=== PATIENT | female | born 1945 | race Caucasian/White ===

== ENCOUNTER 2016-10-06 19:51 | Inpatient (IN) | payer BC ==
[~2016-10-06] VITALS: Ht 160 cm; Wt 100.2 kg
[2016-10-06] MEDS ORDERED: DUONEB INH ONE ×2 (21:17)
[2016-10-06] MEDS ORDERED: NEB-ALBUTEROL 2.5 MG/3 ML INH ONE (21:17)
[2016-10-06] MEDS ORDERED: LABETALOL 100 MG/20 ML VIAL ONE (21:24)
[2016-10-06] MEDS ORDERED: Furosemide 40 MG/4 ML VIAL ONE (21:58)
[2016-10-07] MEDS ORDERED: DEXTROSE 50% SYRINGE 50 ML IV PRN (01:00)
[2016-10-07] MEDS ORDERED: ONDANSETRON 4 MG VIAL IV PRN (01:00)
[2016-10-07] MEDS ORDERED: SALINE FLUSH 10 ML FLUSH PRN (01:00)
[2016-10-07] MEDS ORDERED: METHYLPRED SOD SUCC 40 MG VIAL IV SCH (01:00)
[2016-10-07] MEDS: DUONEB INH SCH ×5 (01:00→22:42)
[2016-10-07] MEDS ORDERED: GLUCAGON 1 MG VIAL IM PRN (01:00)
[2016-10-07] MEDS: CEFTRIAXONE 1 GM in SODIUM CHLORIDE 0.9% 50 ML IV SCH ×2 (01:08→04:04)
[2016-10-07 03:06] VITALS: BP_SYST 155; RESP 20; TEMP 97.3
[2016-10-07 03:09] VITALS: BMI 38.1
[2016-10-07] MEDS ORDERED: MISSING DOSE XX ONE (03:40)
[2016-10-07] MEDS: METHYLPRED SOD SUCC 125 MG/2 ML VIAL IV SCH ×2 (04:04→09:44)
[2016-10-07] MEDS: SALINE FLUSH 10 ML FLUSH SCH ×3 (04:05→20:12)
[2016-10-07] MEDS: SODIUM CHLORIDE 0.9% FLUSH BAG 500 ML IV SCH (04:05)
[2016-10-07 05:15] VITALS: RESP 16
[2016-10-07 07:18] VITALS: BP_SYST 99; RESP 18; TEMP 97.6
[2016-10-07] MEDS ORDERED: AZITHROMYCIN 500 MG in SODIUM CHLORIDE 0.9% 250 ML IV SCH (09:00)
[2016-10-07] MEDS ORDERED: BUMETANIDE 1 MG/4 ML VIAL IV SCH (09:00)
[2016-10-07] MEDS: GABAPENTIN 300 MG CAP PO SCH ×3 (09:44→20:12)
[2016-10-07] MEDS: oxyCODONE/APAP 10/325 TABLET PO PRN ×2 (09:45→15:12)
[2016-10-07 10:46] VITALS: BP_SYST 145; RESP 18; TEMP 97.9
[2016-10-07] MEDS ORDERED: AZITHROMYCIN 250 MG TAB PO ONE (14:40)
[2016-10-07] MEDS: NEB-NACL 3% 4 ML NEBU INH SCH ×3 (14:45→22:43)
[2016-10-07] MEDS: NICOTINE 21 MG/24 HR TRANSDERM SCH (15:11)
[2016-10-07] MEDS ORDERED: NEB-BROVANA 15 MCG/2 ML INH ONE (16:47)
[2016-10-07] MEDS ORDERED: NEB-BUDESONIDE 0.5 MG INH ONE (16:48)
[2016-10-07] MEDS: NEB-BUDESONIDE 0.5 MG INH SCH (17:06)
[2016-10-07] MEDS: NEB-BROVANA 15 MCG/2 ML INH SCH (17:06)
[2016-10-07] MEDS: CLOPIDOGREL 75 MG TAB PO SCH (18:56)
[2016-10-07] MEDS: DILTIAZEM CD 240 MG CAP PO SCH (18:56)
[2016-10-07] MEDS: Hydrocodone/APAP 10/325 MG TAB PO SCH (18:57)
[2016-10-07 19:26] VITALS: BP_SYST 115; RESP 18; TEMP 98.1
[2016-10-07] MEDS: METOPROLOL TART 25 MG TAB PO SCH (20:12)
[2016-10-07] MEDS: BUMETANIDE 0.5 MG TAB PO SCH (20:12)
[2016-10-07] MEDS: Atorvastatin 10 MG TAB PO SCH (20:12)
[2016-10-07 23:02] VITALS: BP_SYST 126; RESP 20; TEMP 97.9
[2016-10-08] MEDS: Hydrocodone/APAP 10/325 MG TAB PO SCH ×3 (02:35→17:40)
[2016-10-08 02:54] VITALS: BP_SYST 118; RESP 18; TEMP 97.4
[2016-10-08] MEDS: SODIUM CHLORIDE 0.9% FLUSH BAG 500 ML IV SCH (06:00)
[2016-10-08] MEDS: DUONEB INH SCH ×4 (06:44→22:21)
[2016-10-08] MEDS: NEB-NACL 3% 4 ML NEBU INH SCH ×4 (06:45→22:21)
[2016-10-08] MEDS: NEB-BUDESONIDE 0.5 MG INH SCH ×2 (06:45→17:43)
[2016-10-08] MEDS: NEB-BROVANA 15 MCG/2 ML INH SCH ×2 (06:45→17:42)
[2016-10-08 07:23] VITALS: BP_SYST 97; RESP 18; TEMP 97.7
[2016-10-08] MEDS ORDERED: LEVEMIR INSULIN SUBQ SCH (09:15)
[2016-10-08] MEDS: SALINE FLUSH 10 ML FLUSH SCH ×2 (09:51→20:02)
[2016-10-08] MEDS: NICOTINE 21 MG/24 HR TRANSDERM SCH (09:52)
[2016-10-08] MEDS: AZITHROMYCIN 250 MG TAB PO SCH (09:52)
[2016-10-08] MEDS: CEFTRIAXONE 1 GM in SODIUM CHLORIDE 0.9% 50 ML IV SCH (09:52)
[2016-10-08] MEDS: GABAPENTIN 300 MG CAP PO SCH ×3 (09:52→20:03)
[2016-10-08] MEDS: CLOPIDOGREL 75 MG TAB PO SCH (09:52)
[2016-10-08] MEDS: METOPROLOL TART 25 MG TAB PO SCH ×2 (09:52→20:03)
[2016-10-08] MEDS: BUMETANIDE 0.5 MG TAB PO SCH ×2 (09:54→20:02)
[2016-10-08] MEDS: PREDNISONE 20 MG TAB PO SCH (09:54)
[2016-10-08] MEDS: DILTIAZEM CD 240 MG CAP PO SCH (12:28)
[2016-10-08 13:11] VITALS: BP_SYST 108; RESP 18; TEMP 98.3
[2016-10-08] MEDS ORDERED: PHARMACY TO DOSE MERREM XX SCH (15:45)
[2016-10-08 16:16] VITALS: BP_SYST 105; RESP 18; TEMP 97.9
[2016-10-08] MEDS: Atorvastatin 10 MG TAB PO SCH (20:02)
[2016-10-08 20:16] VITALS: BP_SYST 130; RESP 20; TEMP 98.2
[2016-10-08 22:54] VITALS: BP_SYST 128; RESP 20; TEMP 98.1
[2016-10-09] VITALS (7 sets, daily range): BP systolic 110–155; RESP 16–20; TEMP 96.4–98.3
[2016-10-09] MEDS: Hydrocodone/APAP 10/325 MG TAB PO SCH ×4 (02:05→18:00)
[2016-10-09] MEDS: SODIUM CHLORIDE 0.9% FLUSH BAG 500 ML IV SCH (06:10)
[2016-10-09] MEDS: DUONEB INH SCH ×4 (06:11→22:16)
[2016-10-09] MEDS: NEB-BROVANA 15 MCG/2 ML INH SCH ×3 (06:11→22:16)
[2016-10-09] MEDS: NEB-BUDESONIDE 0.5 MG INH SCH ×3 (06:11→22:16)
[2016-10-09] MEDS: NEB-NACL 3% 4 ML NEBU INH SCH ×4 (06:11→22:16)
[2016-10-09] MEDS: LEVEMIR INSULIN SUBQ SCH (09:00)
[2016-10-09] MEDS: NICOTINE 21 MG/24 HR TRANSDERM SCH (09:42)
[2016-10-09] MEDS: PREDNISONE 20 MG TAB PO SCH (09:42)
[2016-10-09] MEDS: DILTIAZEM CD 240 MG CAP PO SCH (09:43)
[2016-10-09] MEDS: AZITHROMYCIN 250 MG TAB PO SCH (09:43)
[2016-10-09] MEDS: CLOPIDOGREL 75 MG TAB PO SCH (09:43)
[2016-10-09] MEDS: METOPROLOL TART 25 MG TAB PO SCH ×2 (09:44→20:53)
[2016-10-09] MEDS: SALINE FLUSH 10 ML FLUSH SCH ×2 (09:45→20:44)
[2016-10-09] MEDS ORDERED: MISSING DOSE XX ONE ×2 (09:55)
[2016-10-09] MEDS: BUMETANIDE 0.5 MG TAB PO SCH ×2 (10:49→20:53)
[2016-10-09] MEDS: GABAPENTIN 300 MG CAP PO SCH ×3 (10:50→20:53)
[2016-10-09] MEDS ORDERED: ACETAMINOPHEN 325 MG TAB PO SCH (15:05)
[2016-10-09] MEDS ORDERED: ACETAMINOPHEN 325 MG TAB ONE (15:12)
[2016-10-09] MEDS: ACETAMINOPHEN 325 MG TAB PO PRN (15:19)
[2016-10-09] MEDS: Atorvastatin 10 MG TAB PO SCH (20:53)
[2016-10-10] VITALS (7 sets, daily range): BP systolic 124–149; RESP 15–20; TEMP 97.2–98.3
[2016-10-10] MEDS: SODIUM CHLORIDE 0.9% FLUSH BAG 500 ML IV SCH ×2 (00:12→23:52)
[2016-10-10] MEDS: Hydrocodone/APAP 10/325 MG TAB PO SCH ×3 (02:55→18:02)
[2016-10-10] MEDS: DUONEB INH SCH ×2 (05:35→15:11)
[2016-10-10] MEDS: NEB-BUDESONIDE 0.5 MG INH SCH ×2 (05:35→20:07)
[2016-10-10] MEDS: NEB-NACL 3% 4 ML NEBU INH SCH ×4 (05:35→23:48)
[2016-10-10] MEDS: NEB-BROVANA 15 MCG/2 ML INH SCH ×2 (05:35→20:07)
[2016-10-10] MEDS: SALINE FLUSH 10 ML FLUSH SCH ×2 (08:54→20:25)
[2016-10-10] MEDS: AZITHROMYCIN 250 MG TAB PO SCH (08:55)
[2016-10-10] MEDS: CLOPIDOGREL 75 MG TAB PO SCH (08:55)
[2016-10-10] MEDS: BUMETANIDE 0.5 MG TAB PO SCH ×2 (08:55→21:09)
[2016-10-10] MEDS: GABAPENTIN 300 MG CAP PO SCH ×3 (08:55→21:08)
[2016-10-10] MEDS: DILTIAZEM CD 240 MG CAP PO SCH (08:55)
[2016-10-10] MEDS: PREDNISONE 20 MG TAB PO SCH (08:56)
[2016-10-10] MEDS: METOPROLOL TART 25 MG TAB PO SCH ×2 (08:56→21:08)
[2016-10-10] MEDS: NICOTINE 21 MG/24 HR TRANSDERM SCH (09:07)
[2016-10-10] MEDS: LEVEMIR INSULIN SUBQ SCH (09:07)
[2016-10-10] MEDS ORDERED: MAG HYDROX 30 ML UDC PO PRN (10:45)
[2016-10-10] MEDS: NEB-Levalbuterol 0.31 MG/3 ML NEBU INH SCH ×3 (15:53→23:48)
[2016-10-10] MEDS: NEB-ATROVENT INH SCH ×3 (15:53→23:48)
[2016-10-10] MEDS: ALPRAZOLAM 0.25 MG TAB PO PRN ×2 (16:17→22:01)
[2016-10-10] MEDS: Atorvastatin 10 MG TAB PO SCH (21:08)
[2016-10-10] MEDS ORDERED: MISSING DOSE XX ONE (21:15)
[2016-10-10] MEDS: BISACODYL EC 5 MG TAB PO PRN (22:01)
[2016-10-11] VITALS (7 sets, daily range): BP systolic 124–148; RESP 18–20; TEMP 97–98
[2016-10-11] MEDS: Hydrocodone/APAP 10/325 MG TAB PO SCH ×3 (02:31→18:45)
[2016-10-11] MEDS: NEB-NACL 3% 4 ML NEBU INH SCH ×4 (07:58→23:33)
[2016-10-11] MEDS: NEB-Levalbuterol 0.31 MG/3 ML NEBU INH SCH ×4 (07:58→23:33)
[2016-10-11] MEDS: NEB-BUDESONIDE 0.5 MG INH SCH ×2 (07:58→19:35)
[2016-10-11] MEDS: NEB-BROVANA 15 MCG/2 ML INH SCH ×2 (07:58→19:35)
[2016-10-11] MEDS: NEB-ATROVENT INH SCH ×4 (07:58→23:33)
[2016-10-11] MEDS: SALINE FLUSH 10 ML FLUSH SCH ×2 (08:37→22:31)
[2016-10-11] MEDS: NICOTINE 21 MG/24 HR TRANSDERM SCH (08:38)
[2016-10-11] MEDS: DILTIAZEM CD 240 MG CAP PO SCH (08:39)
[2016-10-11] MEDS: GABAPENTIN 300 MG CAP PO SCH ×3 (08:39→22:29)
[2016-10-11] MEDS: LEVEMIR INSULIN SUBQ SCH (08:39)
[2016-10-11] MEDS: METOPROLOL TART 25 MG TAB PO SCH ×2 (08:39→22:29)
[2016-10-11] MEDS: AZITHROMYCIN 250 MG TAB PO SCH (08:40)
[2016-10-11] MEDS: CLOPIDOGREL 75 MG TAB PO SCH (08:40)
[2016-10-11] MEDS: PREDNISONE 20 MG TAB PO SCH (08:40)
[2016-10-11] MEDS ORDERED: MISSING DOSE XX ONE ×2 (08:45→21:20)
[2016-10-11] MEDS: ALPRAZOLAM 0.25 MG TAB PO PRN ×2 (08:52→22:29)
[2016-10-11] MEDS: BUMETANIDE 0.5 MG TAB PO SCH ×2 (10:09→22:29)
[2016-10-11] MEDS: Atorvastatin 10 MG TAB PO SCH (22:29)
[2016-10-11] MEDS: BISACODYL EC 5 MG TAB PO PRN (22:30)
[2016-10-12] MEDS: SODIUM CHLORIDE 0.9% FLUSH BAG 500 ML IV SCH (00:51)
[2016-10-12] MEDS: Hydrocodone/APAP 10/325 MG TAB PO SCH ×3 (02:22→18:10)
[2016-10-12 03:32] VITALS: BP_SYST 132; RESP 18; TEMP 97
[2016-10-12] MEDS: ALPRAZOLAM 0.25 MG TAB PO PRN ×2 (04:07→18:10)
[2016-10-12] MEDS: NEB-Levalbuterol 0.31 MG/3 ML NEBU INH SCH ×5 (07:19→22:44)
[2016-10-12] MEDS: NEB-BUDESONIDE 0.5 MG INH SCH ×2 (07:19→19:00)
[2016-10-12] MEDS: NEB-NACL 3% 4 ML NEBU INH SCH ×4 (07:19→22:51)
[2016-10-12] MEDS: NEB-ATROVENT INH SCH ×5 (07:19→22:44)
[2016-10-12] MEDS: NEB-BROVANA 15 MCG/2 ML INH SCH ×2 (07:19→19:00)
[2016-10-12 07:34] VITALS: BP_SYST 136; RESP 18; TEMP 97.2
[2016-10-12] MEDS ORDERED: MISSING DOSE XX ONE ×3 (07:50→20:50)
[2016-10-12] MEDS: NICOTINE 21 MG/24 HR TRANSDERM SCH (08:46)
[2016-10-12] MEDS: METOPROLOL TART 25 MG TAB PO SCH ×2 (08:47→20:30)
[2016-10-12] MEDS: PREDNISONE 20 MG TAB PO SCH (08:47)
[2016-10-12] MEDS: AZITHROMYCIN 250 MG TAB PO SCH (08:47)
[2016-10-12] MEDS: CLOPIDOGREL 75 MG TAB PO SCH (08:47)
[2016-10-12] MEDS: DILTIAZEM CD 240 MG CAP PO SCH (08:47)
[2016-10-12] MEDS: BUMETANIDE 0.5 MG TAB PO SCH ×2 (08:47→20:29)
[2016-10-12] MEDS: LEVEMIR INSULIN SUBQ SCH (08:49)
[2016-10-12] MEDS: GABAPENTIN 300 MG CAP PO SCH ×3 (10:21→20:30)
[2016-10-12] MEDS: SALINE FLUSH 10 ML FLUSH SCH ×2 (10:21→20:29)
[2016-10-12] MEDS ORDERED: MAG CIT SOLN 300 ML PO ONE (11:20)
[2016-10-12] MEDS: GUAIFENESIN ER 600 MG TABCR PO SCH ×2 (12:41→20:29)
[2016-10-12 15:45] VITALS: BP_SYST 125; RESP 18; TEMP 97.9
[2016-10-12 19:46] VITALS: BP_SYST 120; RESP 18; TEMP 97.3
[2016-10-12] MEDS: Atorvastatin 10 MG TAB PO SCH (20:29)
[2016-10-12] MEDS: BISACODYL EC 5 MG TAB PO PRN (21:36)
[2016-10-12 22:31] VITALS: BP_SYST 130; RESP 18; TEMP 97.6
[2016-10-13] VITALS (7 sets, daily range): BP systolic 120–138; RESP 16–53; TEMP 97.6–98.6; Ht 160 cm; Wt 100.2 kg
[2016-10-13] MEDS: Hydrocodone/APAP 10/325 MG TAB PO SCH ×3 (02:30→18:35)
[2016-10-13] MEDS: ALPRAZOLAM 0.25 MG TAB PO PRN ×3 (02:37→19:51)
[2016-10-13] MEDS: SODIUM CHLORIDE 0.9% FLUSH BAG 500 ML IV SCH (05:48)
[2016-10-13] MEDS: NEB-ATROVENT INH SCH ×5 (06:13→22:27)
[2016-10-13] MEDS: NEB-NACL 3% 4 ML NEBU INH SCH ×4 (06:13→22:26)
[2016-10-13] MEDS: NEB-BROVANA 15 MCG/2 ML INH SCH ×2 (06:13→17:16)
[2016-10-13] MEDS: NEB-Levalbuterol 0.31 MG/3 ML NEBU INH SCH ×5 (06:13→22:26)
[2016-10-13] MEDS: NEB-BUDESONIDE 0.5 MG INH SCH ×2 (06:13→17:15)
[2016-10-13] MEDS: LEVEMIR INSULIN SUBQ SCH (09:07)
[2016-10-13] MEDS: SALINE FLUSH 10 ML FLUSH SCH ×2 (09:07→19:51)
[2016-10-13] MEDS: BUMETANIDE 0.5 MG TAB PO SCH ×2 (09:08→19:51)
[2016-10-13] MEDS: NICOTINE 21 MG/24 HR TRANSDERM SCH (09:08)
[2016-10-13] MEDS: GUAIFENESIN ER 600 MG TABCR PO SCH ×2 (09:08→19:51)
[2016-10-13] MEDS: CLOPIDOGREL 75 MG TAB PO SCH (09:08)
[2016-10-13] MEDS: METOPROLOL TART 25 MG TAB PO SCH ×2 (09:08→19:51)
[2016-10-13] MEDS: GABAPENTIN 300 MG CAP PO SCH ×3 (09:08→19:51)
[2016-10-13] MEDS: DILTIAZEM CD 240 MG CAP PO SCH (09:09)
[2016-10-13] MEDS ORDERED: OPTIRAY 350 100 ML VIAL HMH IV ONE (14:30)
[2016-10-13] MEDS ORDERED: MAG CIT SOLN 300 ML PO ONE (17:30)
[2016-10-13] MEDS: Atorvastatin 10 MG TAB PO SCH (19:51)
[2016-10-14] MEDS: ALPRAZOLAM 0.25 MG TAB PO PRN ×2 (02:32→20:41)
[2016-10-14] MEDS: Hydrocodone/APAP 10/325 MG TAB PO SCH ×3 (02:32→18:04)
[2016-10-14 03:15] VITALS: BP_SYST 112; RESP 20; TEMP 98
[2016-10-14] MEDS: SODIUM CHLORIDE 0.9% FLUSH BAG 500 ML IV SCH (05:33)
[2016-10-14] MEDS: NEB-BROVANA 15 MCG/2 ML INH SCH ×2 (06:26→18:26)
[2016-10-14] MEDS: NEB-Levalbuterol 0.31 MG/3 ML NEBU INH SCH ×5 (06:26→22:33)
[2016-10-14] MEDS: NEB-ATROVENT INH SCH ×5 (06:26→22:33)
[2016-10-14] MEDS: NEB-BUDESONIDE 0.5 MG INH SCH ×2 (06:26→18:26)
[2016-10-14] MEDS: NEB-NACL 3% 4 ML NEBU INH SCH ×4 (06:27→22:31)
[2016-10-14] MEDS: LEVEMIR INSULIN SUBQ SCH (09:00)
[2016-10-14 09:08] VITALS: BP_SYST 138; RESP 18; TEMP 97.3
[2016-10-14] MEDS: SALINE FLUSH 10 ML FLUSH SCH ×2 (09:29→20:47)
[2016-10-14] MEDS: NICOTINE 21 MG/24 HR TRANSDERM SCH (09:29)
[2016-10-14] MEDS: DILTIAZEM CD 240 MG CAP PO SCH (09:30)
[2016-10-14] MEDS: GABAPENTIN 300 MG CAP PO SCH ×3 (09:30→20:37)
[2016-10-14] MEDS: METOPROLOL TART 25 MG TAB PO SCH ×2 (09:30→20:36)
[2016-10-14] MEDS: CLOPIDOGREL 75 MG TAB PO SCH (09:30)
[2016-10-14] MEDS: GUAIFENESIN ER 600 MG TABCR PO SCH ×2 (09:30→20:37)
[2016-10-14] MEDS: BUMETANIDE 0.5 MG TAB PO SCH ×2 (09:30→20:37)
[2016-10-14 12:59] VITALS: BP_SYST 128; RESP 18; TEMP 98
[2016-10-14 16:17] VITALS: BP_SYST 136; RESP 18; TEMP 98.5
[2016-10-14 19:50] VITALS: BP_SYST 118; RESP 18; TEMP 98.8
[2016-10-14] MEDS: Atorvastatin 10 MG TAB PO SCH (20:37)
[2016-10-14 22:18] VITALS: BP_SYST 114; RESP 20; TEMP 98.6
[2016-10-15] VITALS (7 sets, daily range): BP systolic 110–130; RESP 16–18; TEMP 96.6–98.7
[2016-10-15] MEDS: Hydrocodone/APAP 10/325 MG TAB PO SCH ×3 (02:32→17:07)
[2016-10-15] MEDS: SODIUM CHLORIDE 0.9% FLUSH BAG 500 ML IV SCH (05:38)
[2016-10-15] MEDS ORDERED: LIDOCAINE 1% BUFFERED 1 ML SYR INTRADERM PRN (07:10)
[2016-10-15] MEDS ORDERED: LACT RINGERS 1,000 ML IV SCH (07:10)
[2016-10-15] MEDS: NEB-ATROVENT INH SCH ×5 (07:31→23:03)
[2016-10-15] MEDS: NEB-BROVANA 15 MCG/2 ML INH SCH ×2 (07:32→19:17)
[2016-10-15] MEDS: NEB-NACL 3% 4 ML NEBU INH SCH ×4 (07:32→23:06)
[2016-10-15] MEDS: NEB-BUDESONIDE 0.5 MG INH SCH ×2 (07:32→19:17)
[2016-10-15] MEDS: NEB-Levalbuterol 0.31 MG/3 ML NEBU INH SCH ×5 (07:32→23:03)
[2016-10-15] MEDS: CLOPIDOGREL 75 MG TAB PO SCH (07:39)
[2016-10-15] MEDS: GABAPENTIN 300 MG CAP PO SCH ×3 (09:42→21:50)
[2016-10-15] MEDS: METOPROLOL TART 25 MG TAB PO SCH ×2 (09:42→21:50)
[2016-10-15] MEDS: BUMETANIDE 0.5 MG TAB PO SCH ×2 (09:42→21:50)
[2016-10-15] MEDS: DILTIAZEM CD 240 MG CAP PO SCH (09:42)
[2016-10-15] MEDS: GUAIFENESIN ER 600 MG TABCR PO SCH ×2 (09:42→21:49)
[2016-10-15] MEDS: LEVEMIR INSULIN SUBQ SCH (09:43)
[2016-10-15] MEDS: NICOTINE 21 MG/24 HR TRANSDERM SCH (09:44)
[2016-10-15] MEDS: SALINE FLUSH 10 ML FLUSH SCH ×2 (09:50→20:00)
[2016-10-15] MEDS: ALPRAZOLAM 0.25 MG TAB PO PRN ×2 (09:56→17:45)
[2016-10-15] MEDS: Atorvastatin 10 MG TAB PO SCH (21:50)
[2016-10-15] MEDS ORDERED: MISSING DOSE XX ONE (21:50)
[2016-10-15] MEDS: BISACODYL EC 5 MG TAB PO PRN (22:46)
[2016-10-16] MEDS: Hydrocodone/APAP 10/325 MG TAB PO SCH ×3 (02:05→17:46)
[2016-10-16 03:47] VITALS: BP_SYST 146; RESP 20; TEMP 97.5
[2016-10-16] MEDS: SODIUM CHLORIDE 0.9% FLUSH BAG 500 ML IV SCH (06:00)
[2016-10-16] MEDS: NEB-Levalbuterol 0.31 MG/3 ML NEBU INH SCH ×4 (07:17→18:51)
[2016-10-16] MEDS: NEB-BUDESONIDE 0.5 MG INH SCH ×2 (07:17→18:51)
[2016-10-16] MEDS: NEB-BROVANA 15 MCG/2 ML INH SCH ×2 (07:17→18:51)
[2016-10-16] MEDS: NEB-ATROVENT INH SCH ×4 (07:17→18:51)
[2016-10-16] MEDS: NEB-NACL 3% 4 ML NEBU INH SCH ×3 (07:18→18:30)
[2016-10-16 07:56] VITALS: BP_SYST 138; RESP 18; TEMP 97.8
[2016-10-16] MEDS: GUAIFENESIN ER 600 MG TABCR PO SCH (09:12)
[2016-10-16] MEDS: DILTIAZEM CD 240 MG CAP PO SCH (09:12)
[2016-10-16] MEDS: BUMETANIDE 0.5 MG TAB PO SCH ×2 (09:12→16:27)
[2016-10-16] MEDS: METOPROLOL TART 25 MG TAB PO SCH (09:12)
[2016-10-16] MEDS: SALINE FLUSH 10 ML FLUSH SCH (09:12)
[2016-10-16] MEDS: GABAPENTIN 300 MG CAP PO SCH ×2 (09:12→16:26)
[2016-10-16] MEDS: NICOTINE 21 MG/24 HR TRANSDERM SCH (09:13)
[2016-10-16] MEDS: LEVEMIR INSULIN SUBQ SCH (09:17)
[2016-10-16] MEDS ORDERED: BISACODYL 10 MG SUPP RECTAL ONE (10:15)
[2016-10-16] MEDS ORDERED: MONUROL PO ONE (11:00)
[2016-10-16 11:12] VITALS: BP_SYST 140; RESP 18; TEMP 97.9
[2016-10-16 14:07] VITALS: BP_SYST 140; RESP 18; TEMP 97.9
[2016-10-16] MEDS: ALPRAZOLAM 0.25 MG TAB PO PRN (14:19)
[2016-10-16 16:16] VITALS: BP_SYST 112; RESP 18; TEMP 100.4
[2016-10-16] MEDS: ACETAMINOPHEN 325 MG TAB PO PRN (16:27)
== END 2016-10-16 18:34 | disposition home or self-care (01) | DRG 190 ==
LOC: ENRESERVTM → ENRESERVDT → ER 19:51 → EMR 10-07 00:58 → ENPENDDIS 10-07 00:58 → 5THE 10-07 02:51 → 4THE 10-15 14:17
PROVIDERS: ADMIT Internal Medicine; ATTEND Internal Medicine
DX: J44.1 Chronic obstructive pulmonary disease with (acute) exacerbation (principal); I50.33 Acute on chronic diastolic (congestive) heart failure; J96.11 Chronic respiratory failure with hypoxia; N39.0 Urinary tract infection, site not specified; E66.01 Morbid (severe) obesity due to excess calories; E11.9 Type 2 diabetes mellitus without complications; B96.20 Unspecified Escherichia coli [E. coli] as the cause of diseases classified elsewhere; J96.12 Chronic respiratory failure with hypercapnia; I11.0 Hypertensive heart disease with heart failure; I25.10 Atherosclerotic heart disease of native coronary artery without angina pectoris; R07.9 Chest pain, unspecified; R91.8 Other nonspecific abnormal finding of lung field; Z68.39 Body mass index [BMI] 39.0-39.9, adult; Z72.0 Tobacco use; K59.00 Constipation, unspecified; Z95.1 Presence of aortocoronary bypass graft; Z82.49 Family history of ischemic heart disease and other diseases of the circulatory system
CPT/HCPCS: 36600; 71010; 71250; 71260; 80048; 80053; 80061; 81001; 82553; 82803; 82947; 83036; 83735; 83880; 84439; 84443; 84484; 85025; 85379; 87040; 87071; 87077; 87088; 87186; 87278; 87299; 93005; 93306; 94640; 94660; 94762; 94799; 96374; 96375; 99222; 99223; 99232; 99233; 99238